=== PATIENT | male | born 1980 ===

== ENCOUNTER 2016-11-28 08:06 | Emergency (ER) | payer SELFPAY ==
[2016-11-28 08:21] VITALS: BP 116/76
[2016-11-28 08:46] LABS: Basophils % (Auto) 0.3 % (0.0-1.8); Eosinophils % (Auto) 1.7 % (0.0-4.3); Hematocrit 44.7 % (35.5-45.6); Hemoglobin 14.6 gm/dl (11.8-15.2); Mean Corpuscular HGB Conc 33 % (32-34); Mean Corpuscular Hemoglobin 28 pg (28-32); Mean Corpuscular Volume 86 fl (84-94); Platelet Count 274 K/mm3 (140-440); Red Blood Count 5.19 M/mm3 (3.65-5.03); Red Cell Distribution Width 13.6 % (13.2-15.2); White Blood Count 7.5 K/mm3 (4.5-11.0)
[2016-11-28 09:02] LABS: Anion Gap 18 mmol/L; BUN/Creatinine Ratio 14.44; Blood Urea Nitrogen 13 mg/dL (9-20); Calcium 9.1 mg/dL (8.4-10.2); Carbon Dioxide 26 mmol/L (22-30); Chloride 100.3 mmol/L (98-107); Glucose 111 mg/dL (75-100); Potassium 3.9 mmol/L (3.6-5.0); Sodium 140 mmol/L (137-145)
--- NOTE | 2016-12-03 19:31 | ED Elopement Review ---
ED Pt Elopement review - Results review Lab results: Laboratory Tests 11/28/16 11/28/16 08:28 08:28 WBC 7.5 RBC 5.19 H Hgb 14.6 Hct 44.7 MCV 86 MCH 28 MCHC 33 RDW 13.6 Plt Count 274 Lymph % (Auto) 44.7 H [place] % (Auto) 11.0 H Eos % (Auto) 1.7 Baso % (Auto) 0.3 Lymph # 3.4 [place] # 0.8 Eos # 0.1 Baso # 0.0 Seg Neutrophils % 42.3 Seg Neutrophils # 3.2 Sodium 140 Potassium 3.9 Chloride 100.3 Carbon Dioxide 26 Anion Gap 18 BUN 13 Creatinine 0.9 Estimated GFR > 60 BUN/Creatinine Ratio 14.44 Glucose 111 H Calcium 9.1 Troponin T < 0.010 - Call Back decision Pt Call Back Decision: No action required
== END 2016-11-28 08:38 | disposition left against medical advice (07) ==
LOC: ED 08:06
DX: R07.9 Chest pain, unspecified (principal); Z53.21 Procedure and treatment not carried out due to patient leaving prior to being seen by health care provider
CPT/HCPCS: 36415; 80048; 84484; 85025; 93005; 93010